=== PATIENT | female | born 1970 | race Caucasian/White ===

== ENCOUNTER 2017-11-16 19:14 | Emergency (ER) | payer BC ==
[~2017-11-16] VITALS: Ht 177.8 cm; Wt 92.9 kg
[2017-11-16 19:43] LABS: HEMATOCRIT 39.7 % (36.0-46.0); HEMOGLOBIN 13.2 G/DL (11.9-15.5); MCH 28.1 PG (29.0-34.0); MCHC 33.2 G/DL (30.0-36.0); MCV 84.6 FL (83-99); PLATELET COUNT 294 K/uL (156-360); RBC DIS.WIDTH-CV 13.3 % (11.8-14.6); RBC DIS.WIDTH-SD 41.2 % (39-53); RED BLOOD COUNT 4.69 M/uL (3.80-5.20)
[2017-11-16 19:54] LABS: CHLORIDE 105 mEq/L (99-109); POTASSIUM 4.2 mEq/L (3.7-5.4); SODIUM 139 mEq/L (136-147)
[2017-11-16 19:57] LABS: GLUCOSE 82 mg/dL (70-99); TOTAL PROTEIN 6.7 g/dL (6.4-8.3)
[2017-11-16 19:59] LABS: TOTAL BILIRUBIN 0.4 mg/dL (0.0-1.0)
[2017-11-16 20:00] LABS: ALKALINE PHOSPHATASE 55 IU/L (3-129); CREATININE 0.9 mg/dL (0.6-1.3); GFR ESTIMATE (CALCULATED) > 59 mL/min/
[2017-11-16 20:01] LABS: UREA NITROGEN (BUN) 11 mg/dL (9-23)
[2017-11-16 20:02] LABS: AST (GOT) 12 IU/L (2-34)
[2017-11-16 20:03] LABS: ALT (GPT) 11 IU/L (3-49)
[2017-11-16 20:04] LABS: LIPASE 16 U/L (1.0-51.0)
[2017-11-16 20:27] LABS: APPEARANCE SL.HAZY ((CLEAR)); BILIRUBIN NEGATIVE; BLOOD SMALL; COLOR YELLOW ((YELLOW)); GLUCOSE (STRIP) NEGATIVE; KETONES NEGATIVE; LEUKOCYTES NEGATIVE; NITRITE NEGATIVE; PROTEIN (STRIP) NEGATIVE; SPECIFIC GRAVITY 1.018 (1.000-1.030); UROBILINOGEN 0.2 MG/DL (0.2-1.0)
[2017-11-16 20:34] LABS: BACTERIA NONE SEEN /HPF; EPITHELIAL CELLS 1+ /HPF; MUCUS TRACE /LPF; UCUL ADDED? NO; WHITE BLOOD CELLS 0-5 /HPF (0-5)
[2017-11-16 20:57] LABS: QUANTITATIVE HCG < 4.0 MIU/ML
[2017-11-16] MEDS ORDERED: ZOFRAN ODT4 MG PO (21:59)
[2017-11-16] MEDS ORDERED: TRAMADOL HCL50 MG PO (21:59)
[2017-11-16 22:25] VITALS: BP 138/82
== END 2017-11-16 22:25 | disposition home or self-care (01) ==
LOC: RME 19:14 → EME 19:14 → RME 22:25
PROVIDERS: Physician Assistant
DX: K52.9 Noninfective gastroenteritis and colitis, unspecified (principal); N83.201 Unspecified ovarian cyst, right side; Z91.14 Patient's other noncompliance with medication regimen; J45.909 Unspecified asthma, uncomplicated; I10 Essential (primary) hypertension; Z90.49 Acquired absence of other specified parts of digestive tract
CPT/HCPCS: 74177; 80053; 81003; 83690; 84702; 85027; 99281; 99285; J2405; J2930; J7030